=== PATIENT | male | born 1965 | race Hispanic/Latino ===

== ENCOUNTER 2017-10-22 17:34 | Inpatient (IN) | payer BC ==
[~2017-10-22] VITALS: Ht 175.3 cm; Wt 104.8 kg
[~2017-10-22 17:34] MED LIST: FENTANYL CITRATE/PF 100MCG/2 ML INJ ONE; MIDAZOLAM HCL 2 MG/2 ML VIAL ONE
[2017-10-22 18:51] LABS: BASOPHILS # (AUTO) 0.1 (0.0-0.1); BASOPHILS % 0.5 % (0.0-1.0); EOSINOPHILS # (AUTO) 0.3 (0.0-0.4); HEMATOCRIT 38.2 % (38.2-49.6); HEMOGLOBIN 12.8 g/dL (14.0-18.0); LYMPHOCYTES # (AUTO) 1.3 (1.0-3.2); LYMPHOCYTES % 13.2 % (18.0-39.1); MEAN CORPUSCULAR HEMOGLOBIN 29.8 pg (28-32); MEAN CORPUSCULAR HGB CONC 33.5 g/dL (31-35); MONOCYTES # (AUTO) 0.8 (0.2-0.8); NEUTROPHILS # (AUTO) 7.4 (2.1-6.9); NEUTROPHILS % 74.9 % (38.7-80.0); PLATELET COUNT 201 x10e3/uL (140-360); RED BLOOD COUNT 4.29 x10e6/uL (4.3-5.7); RED CELL DISTRIBUTION WIDTH 12.3 % (11.7-14.4)
[2017-10-22 18:59] LABS: BILIRUBIN,URINE NEGATIVE (NEGATIVE); COLOR,URINE YELLOW (YELLOW); KETONES,URINE NEGATIVE (NEGATIVE); LEUKOCYTE ESTERASE ,URINE NEGATIVE (NEGATIVE); NITRITE,URINE NEGATIVE (NEGATIVE); PROTEIN,URINE DIPSTICK NEGATIVE (NEGATIVE); URINE UROBILINOGEN 0.2 mg/dL (0.2 - 1)
[2017-10-22 19:01] LABS: CLARITY,URINE CLEAR (CLEAR)
[2017-10-22 19:11] LABS: ALANINE AMINOTRANSFERASE 22 IU/L (0-55); ALBUMIN 4.5 g/dL (3.5-5.0); ALBUMIN/GLOBULIN RATIO 1.3 (0.8-2.0); ALKALINE PHOSPHATASE 48 IU/L (40-150); ANION GAP 15.6 mmol/L (8-16); BLOOD UREA NITROGEN 15 mg/dL (7-26); BUN/CREATININE RATIO 13 (6-25); CALCIUM 9.7 mg/dL (8.4-10.2); CARBON DIOXIDE 27 mmol/L (22-29); CHLORIDE 102 mmol/L (98-107); CREATININE, SERUM 1.12 mg/dL (0.72-1.25); EST GLOMERULAR FILTRATION RATE > 60 ML/MIN (60-); GLUCOSE 114 mg/dL (74-118); POTASSIUM 3.6 mmol/L (3.5-5.1); SODIUM 141 mmol/L (136-145)
[2017-10-22] MEDS ORDERED: ONDANSETRON HCL INJ 2 MG/ML VIAL IV STA (20:41)
[2017-10-22] MEDS: SODIUM CHLORIDE 0.9% 1000ML 1,000 ML IV SCH (21:42)
--- NOTE | 2017-10-22 22:00 | Diagnostic Imaging Report ---
EXAM: CT Abdomen and Pelvis WITH contrast INDICATION: Abdominal pain, suspicious for appendicitis. COMPARISON: None. TECHNIQUE: Abdomen and pelvis were scanned utilizing a multidetector helical scanner from the lung base to the pubic symphysis after administration of IV contrast. Coronal and sagittal reformations were obtained. Routine protocol was performed. Scan was performed when during portal venous phase. IV CONTRAST: 100 mL of Isovue-370 ORAL CONTRAST: None RADIATION DOSE: Total DLP: 811.24 mGy*cm Estimated effective dose: (DLP x 0.015 x size factor) mSv COMPLICATIONS: None FINDINGS: LINES and TUBES: None. LOWER THORAX: Unremarkable HEPATOBILIARY: The liver is diffuse hypodense compared to the spleen, consistent with diffuse hepatic diffuse hepatic steatosis. No focal hepatic lesions. No biliary ductal dilation. GALLBLADDER: No radio-opaque stones or sludge. No wall thickening. SPLEEN: No splenomegaly. PANCREAS: No focal masses or ductal dilatation. ADRENALS: No adrenal nodules KIDNEYS/URETERS: Kidneys enhance symmetrically. No hydronephrosis. No cystic or solid mass lesions. No stones. GI TRACT: No abnormal distention, wall thickening, or evidence of bowel obstruction. There are diverticula within the colon without evidence of diverticulitis. Appendix is abnormally thickened measuring 2.8 cm in diameter with significant amount of surekha-appendiceal fat stranding and phlegmonous changes. Cystic lesions are also noted which may represent periappendiceal phlegmon. There is a appendicolith at the tip of the appendix PELVIC ORGANS/BLADDER: Unremarkable. LYMPH NODES: No lymphadenopathy. VESSELS: There is mild atherosclerotic disease in the aorta and major arterial branches. PERITONEUM / RETROPERITONEUM: No free air or fluid. BONES: There are degenerative changes in the lumbar spine. SOFT TISSUES: Bilateral hydroceles. IMPRESSION: 1. Findings are compatible with acute appendicitis. The appearance of the appendix is atypical and may be related to development of mucinous type mucocele or appendiceal neoplasm. Surgical consultation is recommended. Radiologic pathologic correlation is advised Signed by: Dr. Talib Linton M.D. on 10/22/2017 9:56 PM
[2017-10-22] MEDS: METRONIDAZOLE 500MG/NS 100ML 100 ML IV SCH (22:36)
[2017-10-22] MEDS: PIPER-TAZ 3.375 GM 50 ML IV SCH (22:36)
[2017-10-22] MEDS ORDERED: SODIUM CHLORIDE 0.9% 50ML 50 ML ONE (22:50)
[2017-10-22] MEDS ORDERED: IOPAMIDOL 370 MG/ML 200 ML INFUS..BTL INJ ONE (22:50)
[2017-10-22] MEDS ORDERED: DEXTROSE 50% SYRINGE 50 ML IV PRN (23:15)
[2017-10-22] MEDS ORDERED: ONDANSETRON HCL INJ 2 MG/ML VIAL IV PRN (23:15)
--- OUTSIDE RECORDS SUMMARY | 2017-10-22 23:32 | XMS REPORT ---
[facility] Address Unknown Phone Unavailable Care Team Providers Care [employer] Ui Designer Name Role Phone PAM CARTER Unavailable Unavailable Problems This patient has no known problems. Allergies, Adverse Reactions, Alerts This patient has no known allergies or adverse reactions. Medications This patient has no known medications. Results Test Description Test Time Test Comments Text Results Atomic Results Result Comments CT ABDOMEN/PELVIS W [place] [address] Patient Name: TOY ROLLINS MR #: [id number] : 1965 Age/Sex: 52/M Req #: [id number] Adm Physician: Ordered by: FATOU OBRIEN ERADICATOR Report #: [id number] Location: ER Room/Bed: Procedure: [id number] CT/CT ABDOMEN/PELVIS W Exam Date: 10/22/17 Exam Time: 2100 REPORT STATUS: Signed EXAM: CT Abdomen and Pelvis WITH contrast INDICATION: Abdominal pain, suspicious for appendicitis. COMPARISON: None. TECHNIQUE: Abdomen and pelvis were scanned utilizing a multidetector helical scanner from the lung base to the pubic symphysis after administration of IV contrast. Coronal and sagittal reformations were obtained. Routine protocol was performed. Scan was performed when during portal venous phase. IV CONTRAST: 100 mL of Isovue-370 ORAL CONTRAST: None RADIATION DOSE: Total DLP: 811.24 mGy*cm Estimated effective dose: (DLP x 0.015 x size factor) mSv COMPLICATIONS: None FINDINGS: LINES and TUBES: None. LOWER THORAX: Unremarkable HEPATOBILIARY: The liver is diffuse hypodense compared to the spleen, consistent with diffuse hepatic diffuse hepatic steatosis. No focal hepatic lesions. No biliary ductal dilation. GALLBLADDER: No radio-opaque stones or sludge. No wall thickening. SPLEEN: No splenomegaly. PANCREAS: No focal masses or ductal dilatation. ADRENALS: No adrenal nodules KIDNEYS/URETERS : Kidneys enhance symmetrically. No hydronephrosis. No cystic or solid mass lesions. No stones. GI TRACT: No abnormal distention, wall thickening, or evidence of bowel obstruction. There are diverticula within the colon without evidence of diverticulitis. Appendix is abnormally thickened measuring 2.8 cm in diameter with significant amount of surekha-appendiceal fat stranding and phlegmonous changes. Cystic lesions are also noted which may represent periappendiceal phlegmon. There is a appendicolith at the tip of the appendix PELVIC ORGANS/BLADDER: Unremarkable. LYMPH NODES: No lymphadenopathy. VESSELS: There is mild atherosclerotic disease in the aorta and major arterial branches. PERITONEUM / RETROPERITONEUM: No free air or fluid. BONES: There are degenerative changes in the lumbar spine. SOFT TISSUES: Bilateral hydroceles. IMPRESSION: 1. Findings are compatible with acute appendicitis. The appearance of the appendix is atypical and may be related to development of mucinous type mucocele or appendiceal neoplasm. Surgical consultation is recommended. Radiologic pathologic correlation is advised Signed by: Dr. Talib Linton M.D. on 10/22/2017 9:56 PM Dictated By: TALIB REAGAN MD 55 Transcribed By: KIARA on 10/22/172155 COPY TO: FATOU OBRIEN NP
[2017-10-22] MEDS ORDERED: LEXAPRO10 MG PO (23:49)
[2017-10-22] MEDS ORDERED: PRAVASTATIN SOD40 MG PO (23:49)
[2017-10-22] MEDS ORDERED: ATENOLOL50 MG PO (23:49)
[2017-10-22] MEDS ORDERED: ANALPRAM HC 2.530 GM TOP (23:49)
[2017-10-22] MEDS ORDERED: CIALIS20 MG PO (23:49)
[2017-10-22] MEDS ORDERED: LOSARTAN-HCTZ1 EAC1 PO (23:49)
[2017-10-22] MEDS ORDERED: TRICOR145 MG PO (23:49)
[2017-10-23] VITALS (8 sets, daily range): BP systolic 110–148; BP diastolic 57–82
[2017-10-23] MEDS ORDERED: ACETAMINOPHEN 1000 MG/100 ML IV PRN
[2017-10-23] MEDS: HYDROMORPHONE 1MG/1ML INJ IV PRN ×2 (01:17→09:17)
[2017-10-23] MEDS: SODIUM CHLORIDE 0.9% 1000ML 1,000 ML IV SCH ×5 (01:17→17:13)
[2017-10-23] MEDS: METRONIDAZOLE 500MG/NS 100ML 100 ML IV SCH ×4 (06:08→18:09)
[2017-10-23 06:27] LABS: BASOPHILS % 0.3 % (0.0-1.0); EOSINOPHILS # (AUTO) 0.2 (0.0-0.4); EOSINOPHILS % 1.6 % (0.0-6.0); HEMATOCRIT 36.5 % (38.2-49.6); HEMOGLOBIN 12.1 g/dL (14.0-18.0); LYMPHOCYTES # (AUTO) 1.1 (1.0-3.2); LYMPHOCYTES % 10.6 % (18.0-39.1); MEAN CORPUSCULAR HEMOGLOBIN 29.7 pg (28-32); MEAN CORPUSCULAR HGB CONC 33.2 g/dL (31-35); MEAN CORPUSCULAR VOLUME 89.5 fL (81-99); MONOCYTES # (AUTO) 1.1 (0.2-0.8); MONOCYTES % 10.3 % (4.4-11.3); NEUTROPHILS # (AUTO) 7.9 (2.1-6.9); NEUTROPHILS % 76.7 % (38.7-80.0); PLATELET COUNT 167 x10e3/uL (140-360); RED BLOOD COUNT 4.08 x10e6/uL (4.3-5.7); RED CELL DISTRIBUTION WIDTH 12.4 % (11.7-14.4)
[2017-10-23 06:52] LABS: ALANINE AMINOTRANSFERASE 17 IU/L (0-55); ALBUMIN 3.9 g/dL (3.5-5.0); ALBUMIN/GLOBULIN RATIO 1.2 (0.8-2.0); ALKALINE PHOSPHATASE 44 IU/L (40-150); ANION GAP 13.7 mmol/L (8-16); BLOOD UREA NITROGEN 12 mg/dL (7-26); BUN/CREATININE RATIO 13 (6-25); CARBON DIOXIDE 26 mmol/L (22-29); CHLORIDE 106 mmol/L (98-107); CREATININE, SERUM 0.92 mg/dL (0.72-1.25); EST GLOMERULAR FILTRATION RATE > 60 ML/MIN (60-); GLUCOSE 120 mg/dL (74-118); POTASSIUM 3.7 mmol/L (3.5-5.1); SODIUM 142 mmol/L (136-145)
[2017-10-23] MEDS: PIPER-TAZ 3.375 GM 50 ML IV SCH ×3 (07:09→20:53)
[2017-10-23] MEDS: INSULIN REGULAR, HUMAN 100 UNIT/1 ML 3ML VIAL SQ SCH ×4 (07:30→21:08)
--- NOTE | 2017-10-23 10:12 | Consultation ---
DATE OF CONSULTATION: October 23, 2017 PREOPERATIVE CONSULTATION REASON FOR CONSULTATION: Acute appendicitis. The patient is a 52-year-old male admitted through the emergency room complaining of abdominal pain that had begun on Wednesday. The pain became worse and localized more in the right lower part of the abdomen thereafter, the reason for which he came to the emergency room. He currently describes the pain as being localized in the lower part of the abdomen. There was no diarrhea. The patient had a CT scan of the abdomen that revealed changes consistent with acute appendicitis with the possibility of a mucinous tumor in an atypical appendicits. PAST HISTORY: Significant for obesity and hypertension. No previous surgeries. ALLERGIES: NO KNOWN ALLERGIES. MEDICATIONS: He is currently taking no medicines. REVIEW OF SYSTEMS: Significant for what has been stated. PHYSICAL EXAMINATION GENERAL: A 52-year-old male in no acute distress. VITAL SIGNS: Stable. HEENT: Examination of the head, eyes, ears and nose is unremarkable. LUNGS: Clear. HEART: Regular sinus rhythm. ABDOMEN: Well-localized tenderness over McBurney point with localized rebound. ASSESSMENT: Acute appendicitis with localized perforation. 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 PLAN: Proceed with laparoscopic appendectomy, possible open appendectomy. The patient and his are aware of the fact that if laparoscopic appendectomy cannot be undertaken in a safe manner then an open procedure will be required either by a right lower quadrant transverse incision or a midline incision. They are aware of potential complications. WILL BLEDSOE MD Job#: [id number] LENNOX SOUZA
[2017-10-23] MEDS ORDERED: BUPIVACAINE 0.25%/EPI 30ML SDV INJ ONE (13:30)
[2017-10-23] MEDS ORDERED: GLYCOPYRROLATE INJ 1MG/ 5 ML SYR ONE (14:49)
[2017-10-23] MEDS ORDERED: LIDOCAINE HCL 2% LOCAL INJ 5 ML SDV VIAL INJ ONE (14:49)
[2017-10-23] MEDS ORDERED: SEVOFLURANE INHAL SOLN 250 ML PEN BTL ONE (14:49)
[2017-10-23] MEDS ORDERED: PROPOFOL IV EMULSION 10 MG/ML 20 ML VIAL ONE (14:49)
[2017-10-23] MEDS ORDERED: ONDANSETRON HCL INJ 2 MG/ML VIAL ONE (14:49)
[2017-10-23] MEDS ORDERED: DEXAMETHASONE SOD PHOS INJ 4 MG/ML VIAL ONE (14:49)
[2017-10-23] MEDS ORDERED: NEOSTIGMINE 5 MG/5ML SYR ONE (14:49)
[2017-10-23] MEDS ORDERED: HYDROMORPHONE 1MG/1ML INJ IV PRN (15:45)
[2017-10-23] MEDS ORDERED: ONDANSETRON HCL INJ 2 MG/ML VIAL IV PRN (15:45)
[2017-10-23] MEDS ORDERED: PROMETHAZINE HCL (IM) 25 MG/ML VIAL IV PRN (15:45)
[2017-10-23] MEDS ORDERED: HYDROMORPHONE 1MG/1ML INJ ONE ×2 (16:10→16:22)
--- NOTE | 2017-10-23 16:34 | Operative Report ---
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 PROCEDURE PERFORMED: Diagnostic laparoscopy and laparoscopic and open appendectomy. MONITORING ANALYST: Liliane Mcrae ESTIMATED BLOOD LOSS: Minimal. DRAINS: None. COMPLICATIONS: None. INDICATIONS AND FINDINGS: The patient is a 52-year-old, pleasant male admitted through the emergency room complaining of abdominal pain since Wednesday. The pain got worse, the reason for which he came to the emergency room. In the emergency room, he had a CT scan that revealed changes consistent with acute appendicitis and the possibility of a mucinous tumor of the appendix was raised as the appendix was dilated and abnormal appearing in the area of the tip. On physical examination, he presented with localized right lower quadrant tenderness with rebound. INTRAOPERATIVE FINDINGS: Patient had acute appendicitis with distended, grossly abnormal-looking appendix that was difficult to grasp due to the size, which was about an inch in diameter or longer. In addition to that, the tip of the appendix contained nodularity which appeared to be also abnormal, raising the possibility of a tumor. Laparoscopy was performed. We found indeed what the CAT scan had suggested. When we tried to manipulate the appendix, it was very large and difficult to grasp and abnormal-looking as it was previously stated. Because of the possibility of a mucinous tumor and the fear to rupture the appendix during attempts at manipulation due to its large size, it was decided then to open up the patient through a right lower quadrant incision that was tailor-made to the location of pain and to the laparoscopy. DESCRIPTION OF PROCEDURE: With the patient lying on the operative table in the supine position, after administration of general endotracheal anesthesia, he was prepped and draped for a diagnostic laparoscopy, possible laparoscopic appendectomy, possible open appendectomy. The procedure was begun by establishing a pneumoperitoneum in the umbilical site, after putting an 11-12 trocar in that location. Then we placed 2 other working ports in the right mid-clavicular line and then in the right lower quadrant. The laparoscopic findings noted above were found. We partially mobilized the cecum along the white line of Toldt, and then tried to inspect the appendix. We did not attempt to grasp it. It was decided then to open up the patient. We made a right lower quadrant muscle-splitting incision higher than usual to accommodate the higher than usual location of the cecum, which was almost at the level of the umbilicus. A transverse incision was made muscle-splitting in the right lower quadrant just below the umbilicus, and then the abdomen was entered. The cecum that previously had been mobilized was then further mobilized and delivered into the wound along with the appendix. We transected the blood supply to the appendix, tied off with 2-0 silk, and then performed cecectomy with an appendectomy by firing the TA60 stapler across the cecum to include the appendix. The staple line was washed with Betadine and then reinforced with 3-0 silk. The right lower quadrant was then irrigated with saline solution. We changed gloves. Then after verification that the sponge instrument count was correct, we closed the wound in layers using #0 Vicryl for the peritoneum and internal oblique muscles and then #1 Vicryl for part of the rectus sheath that had been opened and the external oblique aponeurosis. The soft tissues were closed using 2-0 plain catgut, and the skin was closed using carolina. The umbilical port site was closed with #0 Vicryl for the fascia, 2-0 Vicryl for the subcutaneous, and 3-0 silk for the skin. The remaining ports were closed using carolina. Sterile dressing was applied. The patient tolerated the procedure well was taken to recovery in stable condition. The family was informed of the intraoperative findings. We will be awaiting path report for further recommendations surgically. Job#: [id number]
[2017-10-23] MEDS: HYDROCODONE/APAP 7.5MG-325MG 1 EA TAB PO PRN ×2 (17:30→22:40)
[2017-10-24] VITALS (7 sets, daily range): BP systolic 116–166; BP diastolic 68–87
[2017-10-24] MEDS: METRONIDAZOLE 500MG/NS 100ML 100 ML IV SCH ×5 (00:46→23:45)
[2017-10-24] MEDS: SODIUM CHLORIDE 0.9% 1000ML 1,000 ML IV SCH ×3 (00:48→12:06)
[2017-10-24] MEDS: HYDROMORPHONE 1MG/1ML INJ IV PRN (03:19)
[2017-10-24] MEDS: PIPER-TAZ 3.375 GM 50 ML IV SCH ×3 (05:29→21:35)
[2017-10-24 06:30] LABS: BASOPHILS % 0.1 % (0.0-1.0); EOSINOPHILS % 0.1 % (0.0-6.0); HEMATOCRIT 32.9 % (38.2-49.6); HEMOGLOBIN 10.9 g/dL (14.0-18.0); LYMPHOCYTES # (AUTO) 0.8 (1.0-3.2); LYMPHOCYTES % 9.1 % (18.0-39.1); MEAN CORPUSCULAR HEMOGLOBIN 30.1 pg (28-32); MEAN CORPUSCULAR HGB CONC 33.1 g/dL (31-35); MEAN CORPUSCULAR VOLUME 90.9 fL (81-99); MONOCYTES # (AUTO) 1.1 (0.2-0.8); MONOCYTES % 12.8 % (4.4-11.3); NEUTROPHILS # (AUTO) 6.8 (2.1-6.9); NEUTROPHILS % 77.6 % (38.7-80.0); PLATELET COUNT 159 x10e3/uL (140-360); RED BLOOD COUNT 3.62 x10e6/uL (4.3-5.7); RED CELL DISTRIBUTION WIDTH 12.4 % (11.7-14.4)
[2017-10-24 06:52] LABS: BLOOD UREA NITROGEN 9 mg/dL (7-26); BUN/CREATININE RATIO 11 (6-25); CALCIUM 8.7 mg/dL (8.4-10.2); CARBON DIOXIDE 28 mmol/L (22-29); CHLORIDE 106 mmol/L (98-107); CREATININE, SERUM 0.84 mg/dL (0.72-1.25); EST GLOMERULAR FILTRATION RATE > 60 ML/MIN (60-); GLUCOSE 117 mg/dL (74-118); SODIUM 141 mmol/L (136-145)
[2017-10-24] MEDS: INSULIN REGULAR, HUMAN 100 UNIT/1 ML 3ML VIAL SQ SCH ×4 (07:30→20:18)
[2017-10-24] MEDS: HYDROCODONE/APAP 7.5MG-325MG 1 EA TAB PO PRN ×2 (10:08→17:38)
[2017-10-24] MEDS: ATENOLOL 50 MG TAB PO SCH (16:33)
[2017-10-24] MEDS ORDERED: ACETAMINOPHEN 325 MG TAB PO PRN (21:00)
[2017-10-24] MEDS ORDERED: ZOLPIDEM TARTRATE 5 MG TAB PO PRN (21:00)
[2017-10-24] MEDS ORDERED: MAGNESIUM HYDROXIDE 30 ML UDC PO PRN (21:00)
[2017-10-25 00:26] VITALS: BP 152/81
[2017-10-25 05:10] VITALS: BP 110/61
[2017-10-25] MEDS: PIPER-TAZ 3.375 GM 50 ML IV SCH ×3 (05:44→22:36)
[2017-10-25] MEDS: METRONIDAZOLE 500MG/NS 100ML 100 ML IV SCH ×3 (06:25→18:39)
[2017-10-25] MEDS: INSULIN REGULAR, HUMAN 100 UNIT/1 ML 3ML VIAL SQ SCH ×4 (07:30→21:00)
[2017-10-25 08:08] VITALS: BP 137/72
[2017-10-25] MEDS: SODIUM CHLORIDE 0.9% 1000ML 1,000 ML IV SCH (08:16)
[2017-10-25] MEDS: ATENOLOL 50 MG TAB PO SCH (09:14)
[2017-10-25 12:00] VITALS: BP 161/86
--- NOTE | 2017-10-25 12:13 | History and Physical ---
HISTORY OF PRESENT ILLNESS: Mr. Hickman is a pleasant 52-year-old man who was referred to the emergency room by Dr. Anderson and he was seen in the office with abdominal discomfort. The patient evidently had a couple of days of lower abdominal discomfort and cramping. PAST MEDICAL HISTORY: Significant for hypertension, previous episode of Kemp's palsy. HOME MEDICATIONS 1. Atenolol 50 mg daily. 2. Losartan/hydrochlorothiazide 100/25 mg daily. 3. Pravastatin 40 mg daily. 4. Cialis p.r.n. 5. Fenofibrate 160 mg daily. PERSONAL AND SOCIAL HISTORY: He does not smoke. PHYSICAL EXAMINATION: GENERAL: At this time shows an obese man. HEENT: Examination of the head, eyes, ears, nose, and throat is unremarkable. NECK: Thick. CARDIOVASCULAR: Heart sounds S1, S2 are equal. No murmurs. LUNGS: Clear. ABDOMEN: Tender. EXTREMITIES: No cyanosis, clubbing, or edema. ASSESSMENT 1. CAT scan suggesting appendicitis. 2. History of hypertension. PLAN: Surgical evaluation with Dr. Burton Basilio. Further management based on clinical course. Job#: [id number] PKU cc:MD Burton Bustos MD
--- NOTE | 2017-10-25 13:01 | Diagnostic Imaging Report ---
PROCEDURE: X-RAY CHEST, TWO VIEWS COMPARISON: CT abdomen/pelvis 10/14/17. INDICATIONS: FOLLOW UP POST SX FEVER, APPENDECTOMY FINDINGS: LUNGS: Bibasilar airspace opacity suggestive of atelectasis, most significant in the left lung base. No infiltrate to suggest pneumonia. PLEURA: No effusions or pneumothorax. HEART \T\ MEDIASTINUM: The heart is mildly enlarged. Pulmonary vascular markings are normal. BONES \T\ SOFT TISSUES: No focal osseous lesions. Visualized bowel is unremarkable. CONCLUSION: Bibasilar atelectasis. No findings to suggest infiltrate. Dictated by: Madeleine Herrera M.D. on 10/25/2017 at 13:01 Electronically approved by: Madeleine Herrera M.D. on 10/25/2017 at 13:01
[2017-10-25 16:23] VITALS: BP 144/76
[2017-10-25 20:00] VITALS: BP_SYST 114; BP_SYST 144; BP_DIAS 71; BP_DIAS 76
[2017-10-26] VITALS: BP 158/83
[2017-10-26] MEDS: METRONIDAZOLE 500MG/NS 100ML 100 ML IV SCH ×3 (00:19→12:12)
[2017-10-26 04:00] VITALS: BP 151/83
[2017-10-26] MEDS: PIPER-TAZ 3.375 GM 50 ML IV SCH ×2 (06:42→13:42)
[2017-10-26 06:50] LABS: BASOPHILS % 0.3 % (0.0-1.0); EOSINOPHILS # (AUTO) 0.2 (0.0-0.4); EOSINOPHILS % 3.2 % (0.0-6.0); HEMATOCRIT 29.3 % (38.2-49.6); HEMOGLOBIN 9.5 g/dL (14.0-18.0); LYMPHOCYTES # (AUTO) 1.2 (1.0-3.2); LYMPHOCYTES % 20.3 % (18.0-39.1); MEAN CORPUSCULAR HEMOGLOBIN 29.6 pg (28-32); MEAN CORPUSCULAR HGB CONC 32.4 g/dL (31-35); MEAN CORPUSCULAR VOLUME 91.3 fL (81-99); MONOCYTES # (AUTO) 0.8 (0.2-0.8); MONOCYTES % 12.9 % (4.4-11.3); NEUTROPHILS # (AUTO) 3.8 (2.1-6.9); NEUTROPHILS % 63.1 % (38.7-80.0); PLATELET COUNT 170 x10e3/uL (140-360); RED BLOOD COUNT 3.21 x10e6/uL (4.3-5.7); RED CELL DISTRIBUTION WIDTH 12.1 % (11.7-14.4)
[2017-10-26] MEDS: INSULIN REGULAR, HUMAN 100 UNIT/1 ML 3ML VIAL SQ SCH ×2 (07:30→11:30)
[2017-10-26 08:21] VITALS: BP 154/82
[2017-10-26] MEDS: ATENOLOL 50 MG TAB PO SCH (09:47)
[2017-10-26] MEDS: HYDROCODONE/APAP 7.5MG-325MG 1 EA TAB PO PRN (09:48)
[2017-10-26] MEDS ORDERED: TYLENOL WITH C1 EACH PO (11:51)
[2017-10-26] MEDS ORDERED: AUGMENTIN 500-1 EACH PO (11:52)
[2017-10-26 12:36] VITALS: BP 156/83
== END 2017-10-26 13:59 | disposition home or self-care (01) | DRG 339 ==
LOC: ER 17:34 → MED/SURG 23:30
PROVIDERS: ADMIT Internal Medicine; ATTEND Internal Medicine
PROC: 3E0M05Z Introduction of Adhesion Barrier into Peritoneal Cavity, Open Approach (ICD-10-PCS; 2017-10-23)
PROC: 0DJD4ZZ Inspection of Lower Intestinal Tract, Percutaneous Endoscopic Approach (ICD-10-PCS; 2017-10-23)
PROC: 0DTJ0ZZ Resection of Appendix, Open Approach (ICD-10-PCS; 2017-10-23)
PROC: 0DTJ0ZZ Resection of Appendix, Open Approach (ICD-10-PCS; principal; 2017-10-23 12:00)
DX: C18.1 Malignant neoplasm of appendix (principal); K35.80 Unspecified acute appendicitis; I10 Essential (primary) hypertension; E66.9 Obesity, unspecified; Z68.34 Body mass index [BMI] 34.0-34.9, adult
CPT/HCPCS: 36415; 71046; 74177; 80048; 80053; 81001; 82150; 82948; 83690; 83735; 85025; 88304; 88307; 96361; 99284; C1766; J1100; J1170; J2001; J2250; J2405; J2543; J7030; Q9967